=== PATIENT | female | born 1955 | race Caucasian/White ===

== ENCOUNTER 2019-12-19 17:09 | Outpatient (CLI) | payer OTHER | END 2019-12-19 23:59 | disposition home or self-care (01) | LOC: LAB.R 17:09 | PROVIDERS: ATTEND Physician Assistant Medical | DX: N39.0 Urinary tract infection, site not specified (principal) | CPT/HCPCS: 87086 ==

== ENCOUNTER 2021-04-19 08:00 | Outpatient (CLI) | payer OTHER | END 2021-04-19 23:59 | disposition home or self-care (01) | LOC: LAB.S 08:00 | PROVIDERS: ATTEND Physician Assistant Medical | DX: R30.0 Dysuria (principal) | CPT/HCPCS: 87086; 87181 ==

== ENCOUNTER 2021-12-08 17:33 | Outpatient (CLI) | payer OTHER ==
--- NOTE | 2021-12-18 11:20 | XRAY Report ---
PROCEDURE: Chest 2 View INDICATIONS: COVID+ with cough TECHNIQUE: 2 views of the chest are obtained. COMPARISON: None. FINDINGS: No evidence of pneumonia nor edema. No pleural effusions. No pneumothoraces. Osseous structures gross ly unremarkable. Heart size normal. IMPRESSION: No acute process. Reviewed by: Sarah Rivero MD on 12/08/2021 5:30 PM PDT Approved by: Sarah Rivero MD on 12/08/2021 5:30 PM PDT Station ID: [id number]
== END 2021-12-08 20:00 | disposition home or self-care (01) ==
LOC: DI.S 17:33
PROVIDERS: ATTEND Physician Assistant Medical
DX: R09.81 Nasal congestion (principal); R05.9 Cough, unspecified

== ENCOUNTER 2022-01-28 08:00 | Outpatient (CLI) | payer OTHER | END 2022-01-28 23:59 | disposition home or self-care (01) | LOC: LAB.S 08:00 | PROVIDERS: ATTEND Physician Assistant | DX: R30.0 Dysuria (principal) | CPT/HCPCS: 87086 ==